=== PATIENT | male | born 1960 | race African-American/Black ===

== ENCOUNTER → 2022-01-28 | Outpatient (CLI) | payer OTHER ==
--- NOTE | 2022-01-28 18:03 | RAD ---
Exam: XR [id number]_RT 1-2 VIEWS History: Knee pain Comparison: None. Findings: Small tricompartmental osteophytes. No significant knee effusion. Patellofemoral and tibiofemoral stefania nt spaces are relatively preserved. No focal soft tissue swelling. Impression: 1. Mild degenerative changes of the right knee. Electronically signed by: Hermann Terrell MD (01/28/2022 6:01 PM) [id number]
--- NOTE | 2022-01-28 18:04 | RAD ---
XR LUMBAR SPINE 2-3V History: Low back pain Comparison: None. Technique: 2 views of the lumbar spine. Findings: There are 5 non-rib bearing lumbar vertebral segments. There is no evidence of fracture. No destructive osseous lesions. Alignment is normal. No significant facet disease. Mild endplate osteophytes. Mild disc space narrowing L5-S1. Sacroiliac joints are unremarkable. Soft tissues are unremarkable. IMPRESSION: 1. Mild degenerative changes of the lumbar spine. Electronically signed by: Hermann Terrell MD (01/28/2022 6:02 PM) [id number]
== END ==
LOC: RAD 14:07
PROVIDERS: ATTEND Internal Medicine Pulmonary Disease
DX: Z02.71 Encounter for disability determination (principal); M47.816 Spondylosis without myelopathy or radiculopathy, lumbar region; M48.07 Spinal stenosis, lumbosacral region; M25.78 Osteophyte, vertebrae; M17.11 Unilateral primary osteoarthritis, right knee; M25.761 Osteophyte, right knee
CPT/HCPCS: 72100; 73560